=== PATIENT | male | born 1990 | race Caucasian/White ===

== ENCOUNTER 2018-04-26 18:11 | Emergency (ER) | payer SELFPAY ==
[2018-04-26 18:13] VITALS: BP 157/89; PULSE 80; RESP 20; TEMP 36.8; O2SAT 99
--- NOTE | 2018-04-26 18:34 | W.ED.GENAD ---
Discharge Plan Disposition Patient Disposition: HOME Condition: Good Discharge Details Chief Complaint: Abd Prob Clinical Impression: Abdominal muscle strain, Abdominal pain Primary Care Provider: None,None ED Provider: Vic Shaw Home Meds and New Rx's Prescriptions: No Action paroxetine HCl [Paxil] 20 MG tablet 20 mg PO DAILY RF: 0 Discharge Instructions Instructions: Muscle Strain (ED), Abdominal Pain (ED) Additional Instructions: Please take ibuprofen as needed for pain. Please do not lift anything heavier than 5 pounds at your work for the next 2 weeks. If you notice any worsening of your symptoms, or any new symptoms such as vomiting, diarrhea, fever, chills, shortness of breath, chest pain, numbness, weakness, or fainting , please return immediately to the emergency department for reevaluation. Please follow up with your primary care provider as soon as possible for reassessment and reevaluation. As always, it was a pleasure participating in your medical care today. Stand Alone Forms: Work Release Discharge Data Discharge Date/Time-TO BE ENTERED AT DEPARTURE: 04/26/18 20:52 Medical Decision Making This is a pleasant 27-year-old male who presents for evaluation of abdominal pain. Pain is sharp in nature and located in the anterior component of his abdomen. He has no associated vomiting or diarrhea. Physical exam demonstrates to eat notably obese male which makes the exam slightly difficult for evaluation of the abdomen, however he does demonstrate reproducible right lower quadrant tenderness and anterior abdominal tenderness. No signs of testicular torsion or other significant abnormalities. No black back pain or CVA tenderness. Differential includes hernia, appendicitis, muscle strain, or mild gastritis. We will get a CT scan for further evaluation, rehydrate, and evaluate for any signs of significant systemic illness. [address] scan per virtual radiologist shows no evidence of acute process. No significant abnormalities are noted in laboratory workup with no evidence of bandemia, left shift, elevated white count, or significant electrolyte abnormality. Urinalysis is negative for any signs of infection. Patient's transaminases are elevated, especially in comparison to prior labs. AST is 81 and ALT is 162. I did discuss this with the patient he denies any IV drug use, significant Tylenol use, or other changes. He does note that for the past year he has been drinking notable amount more, but would not consider himself having any alcohol problem. He usually drinks a few alcoholic beverages a few times a week. Additionally this may be causing a component of his transaminitis, however the patient's obesity may certainly be leading to a nonalcoholic steatohepatitis as well. With the patient's symptoms concerning for a musculoskeletal etiology I feel the most likely pulled his rectus abdominis muscle with a mild muscle strain. With no acute process, and pain easily manageable with NSAIDs, I feel he can be safely discharged home. I discussed red flags for which to return the patient does understand this as well as the importance of close follow-up with a primary care provider for his transaminitis. I have extensively reviewed the treatment plan and discharge instructions with the patient and their family. I have addressed all patient concerns at this time. The patient and family was made aware of what symptoms to monitor for that would warrant a return to the emergency department. Discussed the plan with the patient and family, they demonstrate verbal understanding and agreement with our assessment and plan at this time. COMPARISON: No relevant prior studies available. FINDINGS: The appendix is normal. Normal appearing solid organs. No intestinal obstruction. No obstructive uropathy. No free fluid. No free air. No inflammatory changes. IMPRESSION: No specific etiology identified for the patient's symptoms. Thank you for allowing us to participate in the care of your patient. Dictated and Authenticated by: Andi Louis MD [facility] General Date/Time Provider Initiated Documentation: 04/26/18 18:13. [facility] Narrative: This is a 27-year-old male with no significant past medical history except for penicillin allergy and previous cyst on his buttock, who presents today for evaluation of abdominal pain. Patient states that the pain is been present for the last few weeks, it is mild and located in the anterior abdomen, however today it was notably worse after lifting a heavy object. He describes it as sharp. There is no radiation. It is below the xiphoid and above the umbilicus. He denies any flank or severe back pain. He had one episode of vomiting 2 weeks ago. He is having regular bowel movements. He denies any hematochezia, melena, acholic stool, hematemesis. He denies any associated vomiting or diarrhea. Symptoms are made worse when he lies flat, improved when he sits upright. It worsened when he lifts or strains. He denies any radiation to his groin. He denies any other modifying factors. He denies any significant severe chest pain or severe shortness of breath. He denies any bulge. He denies any previous abdominal surgeries. He has no other complaints at this time. Related Data Home Medications Medication Instructions Recorded Confirmed paroxetine HCl [Paxil] 20 mg PO DAILY 04/21/16 04/26/18 Allergies Allergy/AdvReac Type Severity Reaction Status Date / Time Penicillins AdvReac Skin Rash Unverified 04/26/18 18:18 General Stated Complaint: Abd Prob NAKIA: 3 Review of Systems Review of Systems All systems reviewed & are unremarkable except as noted in HPI and below PFSH Social History Smoking and Tabacco status: Never Exam Narrative Exam Narrative: 1.Const: Well-nourished, Well-developed, appearing stated age, morbidly obese 2.Eyes: PERRL, no conjunctival injection, and symmetrical lids. 3.ENT: Atraumatic external nose and ears. Moist MM. Neck: Symmetric, trachea midline, No thyromegaly. 4.CVS: +S1/S2, No murmurs or gallops. Peripheral pulses 2+ and equal in all extremities. Brisk capillary refill in all extremities. 5.RESP: Unlabored respiratory effort. Clear to auscultation bilaterally. No wheezes rales or rhonchi 6.GI: Soft, notably obese, nondistended. Tenderness in the anterior abdomen above the umbilicus, as well as the right lower quadrant. No bulging in the groin. Testicular exam was performed demonstrates normal cremasteric reflex bilaterally, nontender testicles. 7.MSK: Normocephalic/Atraumatic, Extremities w/o deformity or ttp No cyanosis or clubbing, Normal movement of all extremities 8.Skin: Warm, Dry. No rashes or lesions. 9.Neuro: riveter II-XII grossly intact. Sensation grossly intact, no focal neurologic deficits. 10.Psych: (AAO) x3. Appropriate mood and affect Course Vital Signs Temperature 36.8 C 04/26/18 18:13 Pulse 80 04/26/18 18:13 Respiratory Rate 20 04/26/18 18:13 Blood Pressure 157/89 H 04/26/18 18:13 Pulse Oximetry 99 04/26/18 18:13 Temperature 36.8 C 04/26/18 18:13 Temperature Source Skin 04/26/18 18:13 Pulse 80 04/26/18 18:13 Respiratory Rate 20 04/26/18 18:13 Blood Pressure 157/89 H 04/26/18 18:13 Blood Pressure Position Sitting 04/26/18 18:13 Pulse Oximetry 99 04/26/18 18:13 Oxygen Delivery Method Room Air 04/26/18 18:13 Oxygen Flow Rate 0 04/26/18 18:13 Pain Level 10 04/26/18 18:13
--- NOTE | 2018-04-26 18:40 | ED.GENADUL_ITS ---
Discharge Plan Disposition Patient Disposition: HOME Condition: Good Discharge Details Chief Complaint: Abd Prob Clinical Impression: Abdominal muscle strain, Abdominal pain Primary Care Provider: None,None ED Provider: Vic Shaw Home Meds and New Rx's Prescriptions: No Action paroxetine HCl [Paxil] 20 MG tablet 20 mg PO DAILY RF: 0 Discharge Instructions Instructions: Muscle Strain (ED), Abdominal Pain (ED) Additional Instructions: Please take ibuprofen as needed for pain. Please do not lift anything heavier than 5 pounds at your work for the next 2 weeks. If you notice any worsening of your symptoms, or any new symptoms such as vomiting, diarrhea, fever, chills, shortness of breath, chest pain, numbness, weakness, or fainting , please return immediately to the emergency department for reevaluation. Please follow up with your primary care provider as soon as possible for reassessment and reevaluation. As always, it was a pleasure participating in your medical care today. Stand Alone Forms: Work Release Discharge Data Discharge Date/Time-TO BE ENTERED AT DEPARTURE: 04/26/18 20:52 Medical Decision Making This is a pleasant 27-year-old male who presents for evaluation of abdominal pain. Pain is sharp in nature and located in the anterior component of his abdomen. He has no associated vomiting or diarrhea. Physical exam demonstrates to eat notably obese male which makes the exam slightly difficult for evaluation of the abdomen, however he does demonstrate reproducible right lower quadrant tenderness and anterior abdominal tenderness. No signs of testicular torsion or other significant abnormalities. No black back pain or CVA tenderness. Differential includes hernia, appendicitis, muscle strain, or mild gastritis. We will get a CT scan for further evaluation, rehydrate, and evaluate for any signs of significant systemic illness. [address] scan per virtual radiologist shows no evidence of acute process. No significant abnormalities are noted in laboratory workup with no evidence of bandemia, left shift, elevated white count, or significant electrolyte abno rmality. Urinalysis is negative for any signs of infection. Patient's transaminases are elevated, especially in comparison to prior labs. AST is 81 and ALT is 162. I did discuss this with the patient he denies any IV drug use, significant Tylenol use, or other changes. He does note that for the past year he has been drinking notable amount more, but would not consider himself having any alcohol problem. He usually drinks a few alcoholic beverages a few times a week. Additionally this may be causing a component of his transaminitis, however the patient's obesity may certainly be leading to a nonalcoholic steatohepatitis as well. With the patient's symptoms concerning for a musculoskeletal etiology I feel the most likely pulled his rectus abdominis muscle with a mild muscle strain. With no acute process, and pain easily manageable with NSAIDs, I feel he can be safely discharged home. I discussed red flags for which to return the patient does understand this as well as the importance of close follow-up with a primary care provider for his transaminitis. I have extensively reviewed the treatment plan and discharge instructions with the patient and their family. I have addressed all patient concerns at this time. The patient and family was made aware of what symptoms to monitor for that would warrant a return to the emergency department. Discussed the plan with the patient and family, they demonstrate verbal understanding and agreement with our assessment and plan at this time. COMPARISON: No relevant prior studies available. FINDINGS: The appendix is normal. Normal appearing solid organs. No intestinal obstruction. No obstructive uropathy. No free fluid. No free air. No inflammatory changes. IMPRESSION: No specific etiology identified for the patient's symptoms. Thank you for allowing us to participate in the care of your patient. Dictated and Authenticated by: Andi Louis MD [facility] General Date/Time Provider Initiated Documentation: 04/26/18 18:13 . [facility] Narrative: This is a 27-year-old male with no significant past medical history except for penicillin allergy and previous cyst on his buttock, who presents today for evaluation of abdominal pain. Patient states that the pain is been present for the last few weeks, it is mild and located in the anterior abdomen, however today it was notably worse after lifting a heavy object. He describes it as sharp. There is no radiation. It is below the xiphoid and above the umb ilicus. He denies any flank or severe back pain. He had one episode of vomiting 2 weeks ago. He is having regular bowel movements. He denies any hematochezia, melena, acholic stool, hematemesis. He denies any associated vomiting or diarrhea. Symptoms are made worse when he lies flat, improved when he sits upright. It worsened when he lifts or strains. He denies any radiation to his groin. He denies any other modifying factors. He denies any significant severe chest pain or severe shortness of breath. He denies any bulge. He denies any previous abdominal surgeries. He has no other complaints at this time. Related Data Home Medications Medication Instructions Recorded Confirmed paroxetine HCl [Paxil] 20 mg PO DAILY 04/21/16 04/26/18 Allergies Allergy/AdvReac Type Severity Reaction Status Date / Time Penicillins AdvReac Skin Rash Unverified 04/26/18 18:18 General Stated Complaint: Abd Prob NAKIA: 3 Review of Systems Review of Systems All systems reviewed & are unremarkable except as noted in HPI and below PFSH Social History Smoking and Tabacco status: Never Exam Narrative Exam Narrative: 1.Const: Well-nourished, Well-developed, appearing stated age, morbidly obese 2.Eyes: PERRL, no conjunctival injection, and symmetrical lids. 3.ENT: Atraumatic external nose and ears. Moist MM. Neck: Symmetric, trachea midline, No thyromegaly. 4.CVS: +S1/S2, No murmurs or gallops. Peripheral pulses 2+ and equal in all extremities. Brisk capillary refill in all extremities. 5.RESP: Unlabored respiratory effort. Clear to auscultation bilaterally. No wheezes rales or rhonchi 6.GI: Soft, notably obese, nondistended. Tenderness in the anterior abdomen above the umbilicus, as well as the right lower quadrant. No bulging in the groin. Testicular exam was performed demonstrates normal cremasteric reflex bilaterally, nontender testicles. 7.MSK: Normocephalic/Atraumatic, Extremities w/o deformity or ttp No cyanosis or clubbing, Normal movement of all extremities 8.Skin: Warm, Dry. No rashes or lesions. 9.Neuro: stores naval II-XII grossly intact. Sensation grossly intact, no focal neurologic deficits. 10.Psych: (AAO) x3. Appropriate mood and affect Course Vital Signs Temperature 36.8 C 04/26/18 18:13 Pulse 80 04/26/18 18:13 Respiratory Rate 20 04/26/18 18:13 Blood Pressure 157/89 H 04/26/18 18:13 Pulse Oximetry 99 04/26/18 18:13 Temperature 36.8 C 04/26/18 18:13 Temperature Source Skin 02/15/19 18:13 Pulse 80 04/26/18 18:13 Respiratory Rate 20 04/26/18 18:13 Blood Pressure 157/89 H 04/26/18 18:13 Blood Pressure Position Sitting 04/26/18 18:13 Pulse Oximetry 99 04/26/18 18:13 Oxygen Delivery Method Room Air 04/26/18 18:13 Oxygen Flow Rate 0 04/26/18 18:13 Pain Level 10 04/26/18 18:13
[2018-04-26] MEDS: Normal Saline 1,000 ML 1000 ML IV (18:41)
[2018-04-26 18:50] LABS: Abs Immature Grans 0.03 k/cumm (0.0-0.09); Absolute Basophil Count 0.02 k/cumm (0.0-0.2); Absolute Lymphocyte Count 2.55 k/cumm (1.2-3.4); Absolute Monocyte Count 0.75 k/cumm (0.11-0.7); Absolute Neutrophil Count 5.59 k/cumm (1.2-6.7); Basophils % 0.2; Eosinophils % 1.1; HCT 44.3 % (40.0-50.0); HGB 15.4 g/dL (13.5-17.5); Immature Grans % 0.3; Lymphocytes % 28.2; Mean Corp. HGB Concentration 34.8 g/dL (32.0-36.0); Mean Corpuscular Hemoglobin 29.3 pg (27.0-33.0); Mean Corpuscular Volume 84.2 fL (80-95); Mean Platelet Volume 10.6 fL (8.0-11.0); Monocytes % 8.3; Neutrophils % 61.9; Platelet Count 241 x1000/uL (130-400); RBC 5.26 m/cumm (4.50-6.00); RBC Distribution Width 13.1 % (11.8-14.1); White Blood Cell Count 9.04 k/cumm (4.4-10.8)
[2018-04-26] MEDS: Ketorolac 30 MG/ML VIAL IVP (18:50)
[2018-04-26] MEDS: Omnipaque 350 MG/ML 100 ML BTL IJ (19:57)
--- NOTE | 2018-04-26 20:10 | DI.CT_ITS ---
SYMPTOM/DIAGNOSIS: SHARP ANT ABD PAIN AFTER LIFTING, RLQ PAIN ABDOMEN AND PELVIC CT: CT scan of the abdomen and pelvis was performed following the uneventful administration of intravenous contrast material. There are no prior studies for comparison. The visualized lung bases are clear. There is diffuse fatty infiltration of the liver. No suspicious hepatic masses are seen. The portal and superior mesenteric and splenic veins are patent. The gallbladder is negative. No biliary ductal dilatation is seen. The pancreas, spleen, adrenal glands, kidneys, ureters and bladder are unremarkable. The reproductive organs are unremarkable. The bowel shows no evidence of obstruction or inflammation. There is a normal contrast filled appendix in the right lower quadrant. The abdominal aorta is of normal caliber. No significant aneurysmal dilatation is seen. No significant abdominal or pelvic adenopathy, ascites or pneumoperitoneum is present. No acute osseous abnormality is identified. IMPRESSION: No evidence of an acute abdomen.
[2018-04-26 20:14] LABS: ALT 162 U/L (12-78); AST 81 U/L (15-37); Albumin 4.2 g/dL (3.4-5.0); Alkaline Phosphatase 69 U/L (46-116); Anion Gap 11.3 mmol/L (3-11); BUN 12 mg/dL (7-18); Bilirubin, Total 0.4 mg/dL (0.2-1.0); CO2 27.7 mmol/L (21.0-32.0); CREATININE 0.76 mg/dL (0.70-1.30); Chloride 101 mmol/L (98-107); Glucose 93 mg/dL (70-100); Lipase 82 U/L (73-393); Potassium 3.7 mmol/L (3.5-5.1); Sodium 140 mmol/L (136-145); Total Protein 7.9 g/dL (6.4-8.2)
[2018-04-26 20:16] VITALS: BP 153/101; PULSE 78; RESP 16; TEMP 37.3; O2SAT 98
[2018-04-26 20:16] LABS: Bilirubin Negative (Negative); Blood Negative (Negative); Clarity Clear; Glucose Negative (Negative); Ketones Negative (Negative); Leukocyte Esterase Negative (Negative); Nitrite Negative (Negative); Specific Gravity >= 1.030 (1.005-1.025); Urobilinogen 0.2 EU/dL (Up TO 0.2); pH 5.5 (5-8)
[2018-04-26 20:22] LABS: Calcium 8.7 mg/dL (8.5-10.1)
--- NOTE | 2018-04-26 20:32 | DI.VRAD_ITS ---
EXAM: CT Abdomen and Pelvis With Contrast EXAM DATE/TIME: 04/26/2018 6:35 PM CLINICAL HISTORY: 27 years old, male; Pain; Abdominal pain; Periumbilical; Patient HX: Periumbilical pain x2 weeks, no radiating abdominal pain. No surgeries. ; Additional info: Xxl abdomen and pelvis protocol used. Best images obtained due to body habitus. TECHNIQUE: Axial computed tomography images of the abdomen and pelvis with intravenous contrast. Coronal and sagittal reformatted images were created and reviewed. CONTRAST: 100 ml of omnipaque 350 administered intravenously. COMPARISON: No relevant prior studies available. FINDINGS: The appendix is normal. Normal appearing solid organs. No intestinal obstruction. No obstructive uropathy. No free fluid. No free air. No inflammatory changes. IMPRESSION: No specific etiology identified for the patient's symptoms. Dictated and Authenticated by: Andi Louis MD. Ordering:KATHY Ho MD
--- NOTE | 2018-04-29 09:37 | PDOC.ERCMPRO ---
Care Management Progress Note 04/29-Dr. 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 Referral faxed to [facility] this am.
--- NOTE | 2018-04-29 09:38 | CMPROGNOTE_ITS ---
Care Management Progress Note 04/29-Dr. 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 Referral faxed to [facility] this am.
== END 2018-04-26 20:52 | disposition home or self-care (01) ==
PROVIDERS: Emergency Provider Student in an Organized Health Care Education/Training Program
DX: S39.011A Strain of muscle, fascia and tendon of abdomen, initial encounter (principal); X50.0XXA Overexertion from strenuous movement or load, initial encounter
CPT/HCPCS: 36415; 80053; 83690; 96361; 96374; 99285; 74177; 81003; 85025; 99284; J1885; J3490

== ENCOUNTER 2018-09-10 22:22 | Emergency (ER) | payer OTHER, SELFPAY ==
[2018-09-10 22:28] VITALS: BP 120/72; PULSE 78; RESP 20; TEMP 36.9; O2SAT 97
--- NOTE | 2018-09-10 22:46 | ED.GENADUL_ITS ---
Discharge Plan Disposition Patient Disposition: HOME Condition: Stable Discharge Details Chief Complaint: RashLesion Clinical Impression: Contact dermatitis Primary Care Provider: None,None ED Provider: Dennis Wylie Home Meds and New Rx's Prescriptions: New prednisone 20 mg tablet 60 mg PO DAILY 5 Days Qty: 15 RF: 0 Discharge Instructions Instructions: Dermatitis (ED) Additional Instructions: try over the counter cortisone cream. If that doesn't help after a week try the prednisone daily for 5 days if you have difficulty breathing, abdominal pain or persistent vomit return to the emergency department Medical Decision Making 28 yo male comes in with a rash on his left medial lower leg for about 5 days or so without systemic symptoms. No known new exposures, no new meds or detergents. STates it itches intermittently otherwise no pain. He has a 3x2cm of mild erythema of the left lower medial leg that blanches, no warmth or tenderness, doesn't appear to be cellulitis. I suspect local contact dermatitis. Will have them start topical cortisone cream and if this fails try prednisone. They are arranging for a pcp and will f/u with them and return precautions also given Differential Diagnosis contact dermatitis, poison sarita HPI General Mode of arrival: ambulatory . Date/Time Provider Initiated Documentation: 09/10/18 22:23 . Limitations to Documentation: no limitations . Information obtained by: patient . History of Present Illness 28 year old M presents to the emergency department with the chief complaint of rash, described as moderate, Quality is described as other (itching), Patient started experiencing this day(s) (5) and it has been constant. No relieving factors improve symptom(s), No exacerbating factors reported . Patient notes no other symptoms.. Related Data Home Medications Medication Instructions Recorded Confirmed prednisone 60 mg PO DAILY 5 Days #15 tab 09/10/18 Previous Rx's Medication Instructions Recorded prednisone 60 mg PO DAILY 5 Days #15 tab 09/10/18 Allergies Allergy/AdvReac Type Severity Reaction Status Date / Time Penicillins AdvReac Skin Rash Unverified 09/10/18 22:30 General Stated Complaint: RashLesion NAKIA: 4 Review of Systems Review of Systems All systems reviewed & are unremarkable except as noted in HPI and below Constitutional Denies chills, Denies fever(s) and Denies weakness Cardiovascular Denies chest pain and Denies dyspnea Respiratory Denies dyspnea Gastrointestinal Denies abdominal pain, Denies nausea and Denies vomiting Musculoskeletal Denies joint swelling Neurologic Denies weakness PFSH Social History Smoking/Tobacco Use Status: Never Drug use: Current Sobriety Do you feel safe in your relationship?: Yes Exam Const General: no acute distress Orientation: alert HENMT Head: normal to inspection Ears: external ears normal General nose exam: external nose normal Mouth: moist mucous membranes Eyes General: appearance normal, both eyes and all related structures Neck Neck: normal visual inspection Resp Effort & Inspection: normal respiratory effort and able to speak in complete sentences Cardio Rate: regular rate Skin General skin exam: elasticity normal Neuro General: alert and oriented x3 Extrem General: full ROM Psych Mental Status: mental status grossly normal Course Vital Signs Temperature 36.9 C 09/10/18 22:28 Pulse 78 09/10/18 22:28 Respiratory Rate 20 09/10/18 22:28 Blood Pressure 120/72 09/10/18 22:28 Pulse Oximetry 97 09/10/18 22:28 Temperature 36.9 C 09/10/18 22:28 Temperature Source Skin 09/10/18 22:28 Pulse 78 09/10/18 22:28 Respiratory Rate 20 09/10/18 22:28 Blood Pressure 120/72 09/10/18 22:28 Blood Pressure Position Sitting 09/10/18 22:28 Pulse Oximetry 97 09/10/18 22:28 Oxygen Delivery Method Room Air 09/10/18 22:28 Oxygen Flow Rate 0 09/10/18 22:28 Pain Level 1 09/10/18 22:28
== END 2018-09-10 22:56 | disposition home or self-care (01) ==
PROVIDERS: Emergency Provider Emergency Medicine
DX: L25.9 Unspecified contact dermatitis, unspecified cause (principal)
CPT/HCPCS: 99283

== ENCOUNTER 2018-09-14 20:58 | Emergency (ER) | payer OTHER, SELFPAY ==
[2018-09-14 21:03] VITALS: BP 162/75; PULSE 85; RESP 16; TEMP 36.7; O2SAT 97
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
[2018-09-14] MEDS: Doxycycline Hyclate 100 MG CAP PO (21:40)
[2018-09-14 21:58] LABS: Abs Immature Grans 0.02 k/cumm (0.0-0.09); Absolute Basophil Count 0.01 k/cumm (0.0-0.2); Absolute Lymphocyte Count 1.03 k/cumm (1.2-3.4); Absolute Monocyte Count 0.38 k/cumm (0.11-0.7); Absolute Neutrophil Count 7.41 k/cumm (1.2-6.7); Basophils % 0.1; HCT 40.6 % (40.0-50.0); HGB 14.5 g/dL (13.5-17.5); Immature Grans % 0.2; Lymphocytes % 11.6; Mean Corp. HGB Concentration 35.7 g/dL (32.0-36.0); Mean Corpuscular Volume 83.9 fL (80-95); Mean Platelet Volume 10.5 fL (8.0-11.0); Monocytes % 4.3; Neutrophils % 83.8; Platelet Count 259 x1000/uL (130-400); RBC 4.84 m/cumm (4.50-6.00); RBC Distribution Width 12.9 % (11.8-14.1); White Blood Cell Count 8.85 k/cumm (4.4-10.8)
[2018-09-14 22:11] LABS: ALT 92 U/L (12-78); AST 44 U/L (15-37); Albumin 4.3 g/dL (3.4-5.0); Alkaline Phosphatase 88 U/L (46-116); Anion Gap 12.2 mmol/L (3-11); BUN 14 mg/dL (7-18); Bilirubin, Total 0.4 mg/dL (0.2-1.0); CO2 24.8 mmol/L (21.0-32.0); CREATININE 0.72 mg/dL (0.70-1.30); Chloride 104 mmol/L (98-107); Glucose 131 mg/dL (70-100); Potassium 3.9 mmol/L (3.5-5.1); Sodium 141 mmol/L (136-145); Total Protein 7.6 g/dL (6.4-8.2)
[2018-09-16 11:50] LABS: Lyme Ab w Rflx to Lyme Confirm Negative
[2018-09-17 00:19] LABS: Anaplasma phagocytophilum Negative (Negative); B. miyamotoi PCR Negative (Negative); Babesia divergens/MO-1 Negative (Negative); Babesia duncani Negative (Negative); Babesia microti Negative (Negative); Ehrlichia chaffeensis Negative (Negative); Ehrlichia ewingii/canis Negative (Negative); Ehrlichia muris eauclairensis Negative (Negative)
== END 2018-09-14 22:41 | disposition home or self-care (01) ==
PROVIDERS: Emergency Provider Student in an Organized Health Care Education/Training Program
DX: R21 Rash and other nonspecific skin eruption (principal); R03.0 Elevated blood-pressure reading, without diagnosis of hypertension
CPT/HCPCS: 36415; 36416; 80053; 82962; 87798; 99283; 85025; 86618

== ENCOUNTER 2019-11-30 09:18 | Emergency (ER) | payer OTHER, SELFPAY ==
[2019-11-30 09:24] VITALS: BP 132/90; PULSE 80; RESP 16; TEMP 36.6; O2SAT 97
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
== END 2019-11-30 10:13 | disposition home or self-care (01) ==
PROVIDERS: Emergency Provider Physician Assistant; PCP Nurse Practitioner Adult Health
DX: T23.252A Burn of second degree of left palm, initial encounter (principal); T23.251A Burn of second degree of right palm, initial encounter; X08.8XXA Exposure to other specified smoke, fire and flames, initial encounter
CPT/HCPCS: 16020

== ENCOUNTER 2019-12-03 11:41 | Outpatient (REF) | payer OTHER, SELFPAY ==
[2019-12-03 20:25] LABS: ALT 79 U/L (16-63); AST 25 U/L (15-37); Albumin 4.1 g/dL (3.4-5.0); Alkaline Phosphatase 71 U/L (46-116); Bilirubin, Total 0.2 mg/dL (0.2-1.0); Total Protein 6.9 g/dL (6.4-8.2)
[2019-12-03 20:53] LABS: Bilirubin, Direct 0.08 mg/dL (0.00-0.20)
== END 2019-12-03 12:01 ==
LOC: LBN 11:41
PROVIDERS: PCP Nurse Practitioner Adult Health; Visit Provider Nurse Practitioner Adult Health
DX: R74.0 Nonspecific elevation of levels of transaminase and lactic acid dehydrogenase [LDH] (principal)
CPT/HCPCS: 80076

== ENCOUNTER 2020-01-30 03:28 | Outpatient (CLI) | payer OTHER, SELFPAY ==
[2020-02-02 22:41] LABS: Patient Race White; SARS-CoV-2 RNA Undetected (Undetected); SARS-CoV-2 Specimen Source Nasal
== END 2020-01-30 03:48 ==
PROVIDERS: PCP Nurse Practitioner Adult Health; Visit Provider Nurse Practitioner Adult Health
DX: Z11.59 Encounter for screening for other viral diseases (principal); Z20.828 Contact with and (suspected) exposure to other viral communicable diseases
CPT/HCPCS: U0003

== ENCOUNTER 2020-09-25 01:43 | Emergency (ER) | payer OTHER, SELFPAY ==
[2020-09-25 01:46] VITALS: BP 156/94; PULSE 86; RESP 16; TEMP 37.2; O2SAT 97
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
== END 2020-09-25 02:22 | disposition home or self-care (01) ==
PROVIDERS: Emergency Provider Student in an Organized Health Care Education/Training Program; PCP Nurse Practitioner Adult Health
DX: M54.2 Cervicalgia (principal); Y04.2XXA Assault by strike against or bumped into by another person, initial encounter; Y99.0 Civilian activity done for income or pay
CPT/HCPCS: 99281; 99282

== ENCOUNTER 2021-03-01 22:32 | Emergency (ER) | payer SELFPAY ==
[2021-03-01 22:35] VITALS: BP 172/112; PULSE 78; RESP 18; TEMP 36.4; O2SAT 95
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
[2021-03-01 23:19] VITALS: BP 172/112; PULSE 78; RESP 18; TEMP 36.4; O2SAT 95
== END 2021-03-01 23:16 | disposition home or self-care (01) ==
PROVIDERS: Emergency Provider Physician Assistant; PCP Nurse Practitioner Adult Health
DX: S61.011A Laceration without foreign body of right thumb without damage to nail, initial encounter (principal); W26.0XXA Contact with knife, initial encounter
CPT/HCPCS: 12001

== ENCOUNTER 2021-08-01 03:49 | Outpatient (CLI) | payer SELFPAY ==
[2021-08-01 10:17] LABS: ALT 69 U/L (16-63); AST 28 U/L (15-37); Albumin 4.2 g/dL (3.4-5.0); Alkaline Phosphatase 68 U/L (46-116); Anion Gap 8.4 mmol/L (3-11); BUN 16 mg/dL (7-18); Bilirubin, Total 0.3 mg/dL (0.2-1.0); CO2 27.6 mmol/L (21.0-32.0); CREATININE 0.8 mg/dL (0.70-1.30); Calcium 8.6 mg/dL (8.5-10.1); Chloride 106 mmol/L (98-107); Glucose 105 mg/dL (74-106); Lipase 96 U/L (73-393); Potassium 4.1 mmol/L (3.5-5.1); Sodium 142 mmol/L (136-145); TSH (W/Ref FT4) 1.21 uIU/mL (0.36-3.74)
[2021-08-01 16:09] LABS: Calculated LDL 116 mg/dL (<100); Cholesterol 173 mg/dL (<200); HDL Cholesterol 45 mg/dL (40-60); Triglyceride 62 mg/dL (<150)
== END 2021-08-01 03:50 | disposition home or self-care (01) ==
LOC: LBO 03:52
PROVIDERS: PCP Nurse Practitioner Adult Health; Referring Provider Nurse Practitioner Adult Health
DX: R10.84 Generalized abdominal pain (principal); R74.01 Elevation of levels of liver transaminase levels; F33.9 Major depressive disorder, recurrent, unspecified; E66.9 Obesity, unspecified
CPT/HCPCS: 36415; 80053; 80061; 83690; 84443

== ENCOUNTER 2022-05-26 22:13 | Emergency (ER) | payer OTHER, SELFPAY ==
[2022-05-26 22:17] VITALS: BP 147/88; PULSE 84; RESP 24; TEMP 36.5; O2SAT 96
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
== END 2022-05-26 23:07 | disposition home or self-care (01) ==
PROVIDERS: Emergency Provider Student in an Organized Health Care Education/Training Program; PCP Nurse Practitioner Adult Health
DX: S61.211A Laceration without foreign body of left index finger without damage to nail, initial encounter (principal); W26.0XXA Contact with knife, initial encounter
CPT/HCPCS: 12001; 99283

== ENCOUNTER 2024-02-25 11:00 | Emergency (ER) | payer OTHER, SELFPAY ==
[2024-02-25 11:04] VITALS: BP 131/85; PULSE 94; RESP 15; TEMP 36.6; O2SAT 97
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
== END 2024-02-25 11:49 | disposition home or self-care (01) ==
PROVIDERS: Emergency Provider Physician Assistant; PCP Nurse Practitioner Adult Health
DX: T24.102A Burn of first degree of unspecified site of left lower limb, except ankle and foot, initial encounter (principal); T31.0 Burns involving less than 10% of body surface; X12.XXXA Contact with other hot fluids, initial encounter; Y93.89 Activity, other specified; Y92.89 Other specified places as the place of occurrence of the external cause; Y99.0 Civilian activity done for income or pay
CPT/HCPCS: 99283

== ENCOUNTER 2024-05-19 09:13 | Emergency (ER) | payer OTHER, SELFPAY ==
[2024-05-19] VITALS (24 sets, daily range): BP systolic 140–145; BP diastolic 77–85; PULSE 64–84; RESP 16–20; TEMP 36.4; O2SAT 97–100
--- NOTE | 2024-05-19 09:00 | RT.EKG_ITS ---
APPROVED REPORT Exam: Resting ECG Reason for Exam: chest pain Patient Location: E HR:69 bpm ECG Measurements Heart Rate 69 AXIS NE 202 P 7 QRSd 107 QRS 124 QT 385 T 6 QTc 413 Conclusion Sinus rhythm...normal P axis, V-rate 60- 99 Borderline prolonged NE interval...NE >202, V-rate 50- 90 Right axis deviation...QRS axis (100,269) Consider anterior infarct...Q >30mS in V2-V5
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
[2024-05-19 09:37] LABS: Abs Immature Grans 0.04 10^3/uL (0.0-0.06); Absolute Basophil Count 0.05 10^3/uL (0.0-0.2); Absolute Eosinophil Count 0.04 10^3/uL (0.0-0.7); Absolute Lymphocyte Count 1.78 10^3/uL (1.2-3.4); Absolute Monocyte Count 0.46 10^3/uL (0.1-0.8); Absolute Neutrophil Count 7.11 10^3/uL (1.2-6.7); Basophils % 0.5 %; Eosinophils % 0.4 %; HCT 42.4 % (40.0-50.0); HGB 14.8 g/dL (13.5-17.5); Immature Grans % 0.4 %; Lymphocytes % 18.8 %; MCH 29.8 pg (27.0-33.0); MCHC 34.9 % (32.0-36.0); MCV 86 fL (80-95); MPV 10.4 fL (8.0-11.0); Monocytes % 4.9 %; Platelet Count 226 10^3/uL (130-400); RBC 4.96 10^6/uL (4.36-5.78); RDW 13.1 % (11.8-14.1); RDW-SD 40.6 fL; WBC 9.48 10^3/uL (4.4-10.8)
[2024-05-19 09:55] LABS: ALT 77 U/L (16-63); AST 37 U/L (15-37); Albumin 4.4 g/dL (3.4-5.0); Alkaline Phosphatase 61 U/L (46-116); Anion Gap 8.7 mmol/L (3-11); BUN 12 mg/dL (7-18); Bilirubin, Total 0.4 mg/dL (0.2-1.0); CO2 28.3 mmol/L (21.0-32.0); CREATININE 0.6 mg/dL (0.70-1.30); Calcium 8.8 mg/dL (8.5-10.1); Chloride 106 mmol/L (98-107); Estimated GFR 130.72 (mL/min/1.73m2); Glucose 109 mg/dL (74-106); Magnesium 1.9 mg/dL; Potassium 4.4 mmol/L (3.5-5.1); Sodium 143 mmol/L (136-145); Total Protein 7.5 g/dL (6.4-8.2); Troponin I 8 ng/L (<or=76)
[2024-05-19 11:09] LABS: Troponin I 7 ng/L (<or=76)
--- NOTE | 2024-05-20 09:22 | NUR.NOTE ---
Patient EKG was performed after time change. It is 1 hour off. Nursing Note:
== END 2024-05-19 12:53 | disposition home or self-care (01) ==
PROVIDERS: Emergency Provider Emergency Medicine; PCP Nurse Practitioner Adult Health
DX: R07.9 Chest pain, unspecified (principal); M54.50 Low back pain, unspecified; R94.31 Abnormal electrocardiogram [ECG] [EKG]
CPT/HCPCS: 80053; 93005; 99284; 83735; 84484; 85025; 93010; 99283